=== PATIENT | male | born 2000 | race Caucasian/White ===

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

== ENCOUNTER 2018-06-11 00:23 | Emergency (ER) | payer BC ==
--- NOTE | 2018-06-11 00:42 | ED ---
Upper Extremity Pain - HPI Summary HPI Summary: 18-year-old male presents with left clavicle pain. He states he fell onto his left side. he slipped on some ice. States he has previous fracture to the area and it feels the same. He denies any shoulder or arm pain. No numbness or tingling. He is right-handed. He is a student. Has no medical conditions. no other injury. did not hit head. no loss of consciousness. - History of Current Complaint Chief Complaint: EDShoulderClavicleInj Stated Complaint: COLLAR BONE Time Seen by Provider: 06/11/18 00:33 - Allergies/Home Medications Allergies/Adverse Reactions: Allergies Allergy/AdvReac Type Severity Reaction Status Date / Time No Known Allergies Allergy Verified 06/11/18 00:28 Home Medications: Home Medications NK [No Home Medications Reported] 06/11/18 [History Confirmed 06/11/18] PMH/Surg Hx/FS Hx/Imm Hx Endocrine/Hematology History: Denies: Hx Anticoagulant Therapy Respiratory History: Denies: Hx Asthma - Immunization History Date of Tetanus Vaccine: unk Date of Influenza Vaccine: unk Infectious Disease History: No Infectious Disease History: Reports: Traveled Outside the [place] in Last 30 Days - [place] - Family History Known Family History: Positive: Non-Contributory - Social History Alcohol Use: Occasionally Alcohol Amount: Pt is intoxicated at this time Substance Use Type: Reports: None Smoking Status (MU): Unknown if Ever Smoked Review of Systems Negative: Fever Negative: Chest Pain Negative: Shortness Of Breath Positive: Myalgia - left clavicle pain All Other Systems Reviewed And Are Negative: Yes Physical Exam Triage Information Reviewed: Yes Vital Signs On Initial Exam: Initial Vitals Temp Pulse Resp BP Pulse Ox 98.7 F 102 16 147/81 100 06/11/18 00:26 06/11/18 00:26 06/11/18 00:26 06/11/18 00:26 06/11/18 00:26 Vital Signs Reviewed: Yes Appearance: Positive: Well-Appearing Skin: Positive: Warm, Dry, Other - no tenting Head/Face: Positive: Normal Head/Face Inspection Eyes: Positive: Normal, Conjunctiva Clear ENT: Positive: Pharynx normal Respiratory/Lung Sounds: Positive: Clear to Auscultation, Breath Sounds Present Cardiovascular: Positive: Normal, RRR Musculoskeletal: Positive: Limited @ - left shoulder, Other - tendernes over left collar bone, 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 - Radiology clavicle Radiology Interpretation Completed By: ED Physician Summary of Radiographic Findings: clavicle fracture Course/Dx - Course Course Of Treatment: 18-year-old male presents with left clavicle pain. He states he fell onto his left side. he slipped on some ice. States he has previous fracture to the area and it feels the same. He denies any shoulder or arm pain. No numbness or tingling. He is right-handed. He is a student. Has no medical conditions. On exam has tenderness over left clavicle. Neurovascular intact. X-ray shows fracture. Gave sling and ortho referral. Patient understands and agrees plan. - Diagnoses Differential Diagnosis/HQI/PQRI: Positive: Fracture (Closed), Strain, Sprain Provider Diagnoses: Fracture of left clavicle Discharge - Sign-Out/Discharge Documenting (check all that apply): Patient Departure - Discharge Plan Condition: Good Disposition: HOME Patient Education Materials: Clavicle Fracture (ED) Referrals: [facility] [Primary Care Provider] - Barb Noonan MD [Medical Doctor] - Additional Instructions: Keep area in sling follow up with ortho Use ibuprofen or tyenlol for pain every 6 hours Ice Return to ED if develop any new or worsening symptoms - Billing Disposition and Condition Condition: GOOD Disposition: Home
[2018-06-11 01:18] VITALS: BP 152/82
== END 2018-06-11 01:19 | disposition home or self-care (01) ==
LOC: ED 00:23
DX: S42.002A Fracture of unspecified part of left clavicle, initial encounter for closed fracture (principal); W00.0XXA Fall on same level due to ice and snow, initial encounter; Y92.9 Unspecified place or not applicable
CPT/HCPCS: 99282